=== PATIENT | female | born 1990 | race Caucasian/White ===

== ENCOUNTER 2023-09-09 11:12 | Emergency (ER) | payer OTHER, SELFPAY ==
[2023-09-09 11:16] VITALS: BP 123/80
[2023-09-09] MEDS: MOTRIN 400 MG PO (12:23)
--- NOTE | 2023-09-09 12:49 | ED.GENMED ---
History of Present Illness
<Karen Perales PA-C - Last Filed: 09/10/23 18:05>
General
Chief Complaint: Musculo-Skeletal Complaint
Source: patient
Exam Limitations: none
Time Seen by Provider: 09/09/23 12:00
Nursing documentation reviewed up to this point in time: agreed with
Travel History
Have you had any contact with someone who has COVID-19?: No
Do you have any symptoms of coronavirus? Fever > 100 degrees, chills, cough, shortness of breath, sore throat, loss of taste or smell, muscle aches, or headache?: No
History of Present Illness
History of Present Illness:
Patient is a 33-year-old female with no significant past medical history presenting for evaluation of right foot injury. 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
her right ankle. She is complaining of pain in right foot and unable to bear weight. She denies any numbness or tingling of right foot.
She did not hit her head or lose conscious. She denies sustaining any other injuries during the fall.
Phy Exam
<Karen Perales PA-C - Last Filed: 09/10/23 18:05>
Physical Exam
Physical Exam:
General: Well appearing and non-toxic
Vitals: Vital signs stable, afebrile
HEENT: Atraumatic, normocephalic; pupils equal round and reactive to light bilaterally, protecting airway
Neck: appears supple, no cervical spine or midline spinal tenderness
CV: No evidence of cyanosis
Resp: No evidence of respiratory distress
Abd: non-distended
Extremities: Mild swelling and bruising to right lateral hindfoot, no pain at base of right fifth metatarsal or lateral foot, no swelling or tenderness at medial or lateral malleolus, right lower extremity neurovascular intact; full ROM of right knee
Neuro: alert and oriented x 3, grossly intact
Psych: Normal affect
Skin: Intact, no rashes
Course
<Karen Perales PA-C - Last Filed: 09/10/23 18:05>
Orders/Labs/Results
Orders:
Orders
09/09/23 11:17
Ankle, Right 3 view CR [CR Ankle - Right Min 3 Views *] Urgent
Comment:
Reason For Exam: right ankle pain rolled ankle this morning
09/09/23 12:16
Ibuprofen [Motrin] 400 mg PO NOW STA
Foot, Right 3 View [CR Foot - Right Min 3 Views] Urgent
Comment:
Reason For Exam: fall, pain lateral hindfoot
09/09/23 13:17
Splints/Slings/Crut- Treatment ONCE
Crutches: Yes
Location: Right
Type of Splint: Air Splint
Vital Signs
Initial and Last Documented VS:
Initial Vital Signs
Temp Pulse Resp BP Pulse Ox
98.1 F 79 16 123/80 98
09/09/23 11:16 09/09/23 11:16 09/09/23 11:16 09/09/23 11:16 09/09/23 11:16
Last Documented Vital Signs
Temp Pulse Resp BP Pulse Ox
98.1 F 79 16 123/80 98
09/09/23 11:16 09/09/23 11:16 09/09/23 11:16 09/09/23 11:16 09/09/23 11:16
<Orestes Colmenares MD - Last Filed: 09/09/23 14:02>
Orders/Labs/Results
Orders:
Orders
09/09/23 11:17
Ankle, Right 3 view CR [CR Ankle - Right Min 3 Views *] Urgent
Comment:
Reason For Exam: right ankle pain rolled ankle this morning
09/09/23 12:16
Ibuprofen [Motrin] 400 mg PO NOW STA
Foot, Right 3 View [CR Foot - Right Min 3 Views] Urgent
Comment:
Reason For Exam: fall, pain lateral hindfoot
09/09/23 13:17
Splints/Slings/Crut- Treatment ONCE
Crutches: Yes
Location: Right
Type of Splint: Air Splint
Vital Signs
Initial and Last Documented VS:
Initial Vital Signs
Temp Pulse Resp BP Pulse Ox
98.1 F 79 16 123/80 98
09/09/23 11:16 09/09/23 11:16 09/09/23 11:16 09/09/23 11:16 09/09/23 11:16
Last Documented Vital Signs
Temp Pulse Resp BP Pulse Ox
98.1 F 79 16 123/80 98
09/09/23 11:16 09/09/23 11:16 09/09/23 11:16 09/09/23 11:16 09/09/23 11:16
<Karen Perales PA-C - Last Filed: 09/10/23 18:05>
MDM/Problems Addressed
Differential Diagnosis Includes:
Ankle fracture, ankle sprain, foot fracture, contusion
MDM/Problems Addressed:
Patient is a 33 year old female presenting for evaluation of right foot injury sustained during an inversion injury a few hours ago. She has been unable to bear weight since. No numbness or tingling in right lower extremity. Patient is stable.
Physical exam as documented above. She has some mild swelling and bruising at right ATFL region. No pain at medial or lateral malleolus, lateral foot, midfoot, or fibular head. Strong DP and PT pulses.Will give ibuprofen for pain. Check xrays of
ankle and foot.
X-rays show no evidence of acute fracture or dislocation. Likely ankle sprain. Will discharge with walking boot, crutches, NSAIDs. Will provide Ortho follow-up if symptoms persist/worsen. Patient comfortable this plan. All questions answered
Chronic conditions affecting care:
N/A
Acute Exacerbation and/or Progression of Chronic Illness:
N/A
<Karen Perales PA-C - Last Filed: 09/10/23 18:05>
*Radiology
Radiology exam reviewed: preliminary read by ED provider and radiology read reviewed
*Pulse Oximetry
Patient hypoxic: no
*[employer] Apprentice Interpretation
Rate: [employer] Apprentice- N/A
*Critical Care Note
Total Time (30-74mins, 75-104mins- exclusive of procedures): Not Applicable
ED Attending Note
<Karen Perales PA-C - Last Filed: 09/10/23 18:05>
-
Portions of this chart may have been created with voice recognition software.� Occasional wrong word or��sound alike� substitutions may have occurred due to the inherent limitations of voice recognition software.
<Orestes Colmenares MD - Last Filed: 09/09/23 14:02>
ED Attending Note
Patient seen and examined by attending physician: Yes
ED Attending Note:
HPI: 33-year-old female with no chronic medical issues presents for evaluation of right ankle injury. 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
She has had pain in the lateral part of the foot/ankle since. Denies knee pain. Denies any other injuries or trauma. She has been having trouble bearing weight on her foot.
ROS: Positive for ankle pain, negative for knee pain, numbness, weakness
Physical exam:
General: Well appearing and non-toxic
HEENT: protecting airway
Neck: appears supple
CV: No evidence of cyanosis; she is a good strong palpable right DP and PT pulse
Resp: No accessory muscle use
Abd: Non-distended
Extremities: Patient has small amount of ecchymosis and swelling anterior lateral to the lateral malleolus on the right and tenderness locally in the area of the ATFL; she has no tenderness of the medial or lateral malleolus, no tenderness along the
fifth metatarsal, no significant midfoot tenderness; she has no tenderness in the right knee; she has reasonable range of motion with dorsiflexion and plantarflexion of the right ankle but significant pain with attempts at inversion; no pain on
range of motion of the right knee
Neuro: Alert
Psych: Normal affect
Skin: Intact
Differential diagnosis: Ankle fracture/foot fracture, ankle sprain
Medical decision makin-year-old female presents for evaluation of right ankle injury�inverted at an assembly today while dancing. Exam as above. Sent for x-rays of the foot and ankle which were negative on my independent review for acute
fracture. Suspect likely ankle sprain. Placed in a air splint provided crutches to use will discharge with instructions for RICE, weight-bear as tolerated and she will follow-up with her primary doctor.
Chronic conditions affecting care: N/A
Acute exacerbation or progression of chronic illness: N/A
History source: Patient
Data reviewed: N/A
Medications/testing considered: N/A
Social determinants of health: N/A
Discussion with other providers: N/A
Discharge Plan
Departure
Patient Disposition: Home (Routine Discharge)
Date of Disposition: 09/09/23
Time of Disposition: 13:29
Patient with high blood pressure during this ER visit?: No
Condition: Good
Covid-19: Not Applicable
Discharge Problem:
Right ankle sprain
Instructions: Ankle Sprain (DC)
Prescriptions:
No Action
Multi Tablet
1 tab PO DAILY
acetaminophen 325 MG tablet
650 mg PO Q4HPRN PRN (Reason: mild pain) 0RF
ibuprofen 600 MG tablet
600 mg PO Q4HPRN PRN (Reason: moderate pain/cramps) 0RF
Referrals:
Mu Vega MD [Active] - As needed
Stand Alone Forms: Return to Work
Activity Restrictions/Additional Instructions:
- Return the emergency department any severe pain in right foot/ankle, numbness tingling of right lower extremity, worsening current symptoms, or any other concerns
-Apply ice, Motrin as needed for pain
-You can use crutches over the next 2 days and weight-bear as tolerated
-Follow-up with orthopedics for further evaluation if symptoms persist/worsen
Interventions
Interventions:
*Risk Screen - Suicide Last Done: 09/09/23 12:00
*General Assessment Last Done: 09/09/23 12:00
*Neglect/Abuse Screening Last Done: 09/09/23 12:00
ED- Fall Risk Assessment Last Done: 09/09/23 12:00
*ED COVID-19 Vaccine History Last Done: 09/09/23 11:14
*Nursing Disposition Last Done: 09/09/23 13:36
ED-Musculoskeletal Assessment Last Done: 09/09/23 12:00
Discharge Date and Time
Discharge Date/Time: 09/09/23 13:37
== END 2023-09-09 13:37 | disposition home or self-care (01) ==
LOC: EMR 11:12
PROVIDERS: EMERGENCY PHYSICIAN Emergency Medicine
DX: S93.401A Sprain of unspecified ligament of right ankle, initial encounter (principal); X50.1XXA Overexertion from prolonged static or awkward postures, initial encounter
CPT/HCPCS: 99283; 73610; 73630